=== PATIENT | male | born 1995 | race Caucasian/White ===

== ENCOUNTER 2021-03-20 12:47 | Emergency (ER) | payer MEDICAID, SELFPAY ==
[2021-03-20 12:49] VITALS: BP 153/95; PULSE 79; RESP 17; TEMP 37.1; O2SAT 99; BMI 26.6
--- NOTE | 2021-03-20 12:56 | EKG12_ITS ---
Test Reason : CP Blood Pressure : / mmHG Vent. Rate : 076 BPM Atrial Rate : 076 BPM P-R Int : 114 ms QRS Dur : 092 ms QT Int : 382 ms P-R-T Axes : 029 058 035 degrees QTc Int : 429 ms Normal sinus rhythm Normal ECG Confirmed by BROWN RODRIGUEZ, KITTY ([id number]), associate editor JOSEFA DIAZ ([id number]) on 03/21/2021 11:28:33 AM Referred By: JUVENTINO Confirmed By:KITTY DASILVA MD
[2021-03-20 13:11] LABS: Absolute Lymphocyte Count 1.71 X10^3/uL (0.83-4.51); Absolute Neutrophil Count 5.3 X10^3/uL (2.0-7.7); Basophil# 0.05 X10^3/uL; Basophil% 0.6 % (0-1); Hematocrit 44.2 % (40-54); Hemoglobin 14.5 g/dL (13.0-16.5); Lymphocyte # 1.71 X10^3/ul (0.83-4.51); Lymphocyte % 21.3 % (19-41); Mean Corp Hgb Conc 32.8 g/dL (32-36); Mean Corpuscular Hgb 31.2 pg (27.0-32.0); Mean Corpuscular Volume 95.1 fL (80-94); Mean Platelet Vol. 9.4 fl (6.2-12.0); Monocyte# 0.56 X10^3/uL; NRBC Flagged by Analyzer 0 % (0-5); Neutrophil % 65.9 % (47-70); Platelet Count 198 K/mm3 (150-450); RBC Distribution Width CV 12.8 % (11.6-14.6); Red Blood Count 4.65 M/mm3 (4.6-6.2)
--- NOTE | 2021-03-20 13:15 | CT_ITS ---
STUDY: CTA CHEST REASON FOR EXAM: Male, 25 years old. New onset of sudden chest pain. Possible dissection. RADIATION DOSAGE (If Supplied By Facility): CTDIvol = ( 12 ) mGy, DLP = ( 525.24 ) mGycm TECHNIQUE: The examination was performed with the intravenous administration of IV 100mL Isovue-370. Post-processing of the angiographic images was performed, with multiplanar reformation and 3D reconstruction. Individualized dose optimization techniques were used for this CT. COMPARISON: None. FINDINGS: Normal enhancement of the main pulmonary artery and right and left pulmonary arteries. Normal enhancement of the bilateral peripheral pulmonary arteries. There is no demonstrated pulmonary embolism. Normal thoracic aorta and visualized great vessels. There is no demonstrated aortic dissection. Normal heart and pericardium. Normal mediastinum. Normal hilar regions. Normal visualized trachea and bronchi. The lungs are well expanded. Normal pulmonary parenchyma. Normal pleura. Normal chest wall structures. There are mild degenerative changes of thoracic spine. Normal visualized upper abdomen. CT/CTA Chest W/WO Contrast IMPRESSION: Normal CTA chest examination, without a demonstrated pulmonary embolism or arterial dissection. Electronically Signed: Henry Ramachandran MD at 13:40 EDT , Service support ,
[2021-03-20 13:27] LABS: Anion Gap 2 (5-15); BUN 12 mg/dL (7-18); BUN/Creat Ratio 12.2 RATIO (10-20); Calcium,Total 8.9 mg/dL (8.5-10.1); Chloride 108 mmol/L (98-107); Creatinine, Serum 0.99 mg/dL (0.70-1.30); EST Glomerular Filtration Rate 97 mL/min (>60); Est Glom Filt Rate - Afr Amer 117 mL/min (>60); Glucose 106 mg/dL (74-106); Sodium Level 139 mmol/L (136-145)
[2021-03-20 13:47] VITALS: BP 118/70; PULSE 57; RESP 19; O2SAT 98
[2021-03-20 14:00] VITALS: BP 117/73; PULSE 60; RESP 17; O2SAT 99
--- NOTE | 2021-03-20 14:26 | EDS_ITS ---
HPI History of Present Illness Chief Complaint: Chest Pain Narrative Narrative: Patient presenting for evaluation secondary chest pain. Patient states that he is otherwise healthy, frequently works out. He states that he took a new preworkout supplement today called total war. He states that he then had a normal not overly strenuous workout. He states that he then went to work and had a very sudden onset of chest pain. He describes it as a sharp type pain that radiates straight through to his back and associated with tingling in his left arm. Patient does state that there is some worsening with taking deep breaths. Patient denies that he is having any prior similar episodes. Denies any injuries associated with this. He denies any personal or family history of connective tissue disease. He does report that he has a family history of heart disease, but denies any personal history of hypertension hyperlipidemia diabetes. He denies any DVT or PE risk factors. He does frequently drink caffeinated beverages, but denies that he actually has had any of that today. Review of systems otherwise negative. He does not use any illicit stimulants. [facility] Medical History Asthma Depression Home Medications fluoxetine 20 mg PO DAILY 03/20/21 [History Last Taken Unknown] trazodone 50 mg PO DAILY 03/20/21 [History Last Taken Unknown] Allergy/AdvReac Type Severity Reaction Status Date / Time Cephalosporins Allergy Other Verified 03/20/21 12:54 Penicillins Allergy Other Verified 03/20/21 12:54 Sulfa (Sulfonamide Allergy Hives Verified 03/20/21 12:54 Antibiotics) Family History Other Cancer Hypertension Surgical History H/O sinus surgery Umbilical hernia [place] teeth extracted Social History Smoking Status: Current every day smoker tobacco type: cigarettes alcohol intake: current Alcohol type: beer ROS ROS ED Constitutional Constitutional ED: Denies fever(s) Eyes Eyes: Denies change in vision ENT ENT ED: Denies rhinorrhea or sore throat Cardiovascular Cardiovascular: Reports as per HPI and chest pain Respiratory/Chest Respiratory/Chest: Reports dyspnea Gastrointestinal Gastrointestinal: Denies abdominal pain, nausea or vomiting Genitourinary Genitourinary ED: Denies dysuria Musculoskeletal Musculoskeletal: Denies myalgias or neck pain Integumentary Denies rash Neurologic Neurologic: Denies headache(s), paresthesias or weakness Psychiatric Psychiatric: Denies depression Endocrine Endocrinology: Denies polydipsia or polyuria Hematologic/Lymphatic Hematologic/Lymphatic: Denies easy bleeding or easy bruising Allergic/Immunologic Allergic/Immunologic ED: Denies urticaria EXAM Physical Exam Const Vital Signs: 03/20/21 12:49 03/20/21 12:51 03/20/21 12:59 Temperature 98.8 F Temperature Source Oral Pulse Rate 79 Respiratory Rate 17 Respiratory Effort Normal Non-Labored Blood Pressure 153/95 H Blood Pressure Mean 114 Pulse Ox 99 Oxygen Delivery Method Room Air Room Air Positive well nourished and well developed Constitutional Narrative: Patient is tall and thin in stature General Appearance ED: well developed and NAD HEENT Reports moist mucous membranes normocephalic and atraumatic Eyes EOMs intact bilaterally Neck no lymphadenopathy, supple and no JVD Chest Wall inspection of chest normal and palpation of chest normal Chest Narrative: No evidence of vesicular rash Resp normal respiratory effort and clear to auscultation bilaterally Auscultation: Negative for rales, rhonchi or wheezes Cardio regular rate, regular rhythm, S1 normal heart sound, S2 normal heart sound and no murmurs Peripheral Pulses: radial pulses present, posterior tibial pulses present and dorsalis pedis pulses present GI normal to inspection, nondistended, normoactive bowel sounds, soft to palpation and non-tender Extremity normal to inspection Extremity Narrative: Calves are supple no palpable cord General Extremety ED: Negative for edema or tenderness General Extremity: Negative for edema Neuro oriented x3 and no sensory deficits noted Sensorium / Orientation: awake and alert Motor Exam: strength abnormal Psych mental status grossly normal Skin no rashes or lesions noted Heart Score History: Slightly/Non-Suspicious ECG: Normal Age: </= 45 years Risk Factors: No Risk Factors Troponin: </= Normal Limit Score: 0 MDM MDM MDM Narrative Medical decision making narrative: Patient presented for evaluation secondary to chest pain. Patient described the pain is radiating through to his back, he had a tall thin stature, I was somewhat concerned for the possibility of aortic dissection so CT angiogram was ordered as well as EKG and lab work. CBC chemistry and troponin were found to be unremarkable. CT angiogram of chest per radiology was found to be negative. EKG as noted below is also unremarkable. Heart score is 0 in this patient, I do not feel that he requires admission. His symptoms potentially could have been secondary to his workout supplement, or may have been musculoskeletal regardless I believe that he is stable and appropriate for discharge. Patient was discharged in stable condition. Lab Data Labs: Laboratory Results - last 24 hr 03/20/21 03/20/21 13:02 13:02 WBC 8.0 RBC 4.65 Hgb 14.5 Hct 44.2 MCV 95.1 H MCH 31.2 MCHC 32.8 RDW Std Deviation 45.0 H RDW Coeff of Malathi 12.8 Plt Count 198 MPV 9.4 Immature Gran % (Auto) 0.200 Neut % (Auto) 65.9 Lymph % (Auto) 21.3 [place] % (Auto) 7.0 Eos % (Auto) 5.0 Baso % (Auto) 0.6 Absolute Neuts (auto) 5.3 Absolute Lymphs (auto) 1.71 Nucleated RBC % 0 Sodium 139 Potassium 4.0 Chloride 108 H Carbon Dioxide 29.0 Anion Gap 2 L BUN 12 Creatinine 0.99 Estim Creat Clear Calc 142.50 Est GFR (MDRD) Af Amer 117 Est GFR (MDRD) Non-Af 97 BUN/Creatinine Ratio 12.2 Glucose 106 Calcium 8.9 Troponin I < 0.015 Radiography Diagnostic Testing: Radiology Impression Chest CTA 03/20/21 13:15 IMPRESSION: Normal CTA chest examination, without a demonstrated pulmonary embolism or arterial dissection. Electronically Signed: Henry Ramachandran MD at 13:40 EDT , Service support , EKG Initial EKG: Attestation: I personally reviewed and interpreted this EKG as follows: (Normal sinus rhythm at [address] segments normal T waves normal CO and QTc intervals no evidence of WPW or [place] morphology no acute ischemia or arrhythmia) Discharge Plan Triage Chief Complaint: Chest Pain ED Provider: Hubert Mai Dx/Rx/DC Orders Clinical Impression: Chest pain Instructions: ED Chest Pain, Noncardiac Prescriptions: No Action trazodone 50 mg tablet 50 mg PO DAILY RF: 0 fluoxetine 20 mg tablet 20 mg PO DAILY RF: 0 Primary Care Provider: Hafsa Dupree NP Referrals: Hafsa Dupree NP, CAKE CUTTER MACHINE-C [Primary Care Provider] - As Needed Disposition Disposition: Home, self care
[2021-03-20] MEDS: Ketorolac 15 MG/ML Vial IV (14:58)
[2021-03-20 15:01] VITALS: BP 123/74; PULSE 69; RESP 16; O2SAT 98
== END 2021-03-20 15:01 | disposition home or self-care (01) ==
PROVIDERS: Emergency Provider Emergency Medicine; PCP Nurse Practitioner Primary Care
DX: R07.89 Other chest pain (principal); R20.2 Paresthesia of skin; F32.9 Major depressive disorder, single episode, unspecified; J45.909 Unspecified asthma, uncomplicated; Z79.899 Other long term (current) drug therapy; F17.210 Nicotine dependence, cigarettes, uncomplicated
CPT/HCPCS: 71275; 80048; 84484; 85025; 93005; 96374; 99284; Q9967

== ENCOUNTER 2021-04-08 16:00 | Emergency (ER) | payer MEDICAID, SELFPAY ==
[2021-04-08 16:00] VITALS: BP 135/96; PULSE 91; RESP 18; TEMP 36.5; O2SAT 97; BMI 26.2
--- NOTE | 2021-04-08 16:15 | RAD_ITS ---
STUDY: X-RAY - LEFT SHOULDER REASON FOR EXAM: Male, 25 years old. trauma to left shoulder TECHNIQUE: 4 view(s) of the shoulder. COMPARISON: None. FINDINGS: Normal glenohumeral articulation. Normal acromioclavicular joint. Normal acromion. Normal humeral head and visualized proximal humerus. The soft tissue structures are unremarkable. There is no demonstrated fracture. Normal visualized pulmonary apex. RAD/Shoulder min 2 Views IMPRESSION: Normal x-ray examination of the shoulder. Electronically Signed: Alejandro Stark MD at 16:39 EDT , Service support ,
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
== END 2021-04-08 17:34 | disposition home or self-care (01) ==
PROVIDERS: Emergency Provider Emergency Medicine; PCP Nurse Practitioner Primary Care
DX: S40.012A Contusion of left shoulder, initial encounter (principal); F17.210 Nicotine dependence, cigarettes, uncomplicated; F32.9 Major depressive disorder, single episode, unspecified; Y93.01 Activity, walking, marching and hiking; Z79.899 Other long term (current) drug therapy
CPT/HCPCS: 73030; 99282

== ENCOUNTER 2021-11-18 13:16 | Emergency (ER) | payer MEDICAID, SELFPAY ==
[2021-11-18 13:17] VITALS: BP 139/95; PULSE 84; RESP 18; TEMP 36.1; O2SAT 100; BMI 27.2
[2021-11-18 13:39] VITALS: BP 139/95; PULSE 84; RESP 16; RESP 18; TEMP 36.1; O2SAT 100
--- NOTE | 2021-11-18 14:11 | EDS_ITS ---
HPI History of Present Illness Chief Complaint: Nausea/Vomiting/Diarrhea Informant: patient Narrative Narrative: 26-year-old male presenting to the emergency department with vomiting diarrhea. He states that for about a week and a half now he has been ill. He had a runny nose sore throat cough congestion. He then developed vomiting and diarrhea. He states he was seen at [place] emergency room and was given fluids and some Phenergan and a prescription for nausea medication. He states that despite the nausea medication and Imodium continues to have fluid losses. and daughter are also sick. Diarrhea described as watery and yellow [facility] Medical History Asthma Depression Lab test negative for COVID-19 virus Uncontrolled hypertension Home Medications NK 11/18/21 [History Last Taken Unknown] Allergy/AdvReac Type Severity Reaction Status Date / Time Cephalosporins Allergy Other Verified 11/18/21 13:17 Penicillins Allergy Other Verified 11/18/21 13:17 Sulfa (Sulfonamide Allergy Hives Verified 11/18/21 13:17 Antibiotics) Family History Other Cancer Hypertension Surgical History H/O sinus surgery Umbilical hernia [place] teeth extracted Social History Smoking Status: Current every day smoker tobacco type: e-cigarettes alcohol intake: current Alcohol type: beer ROS ROS ED Constitutional Constitutional ED: Reports chills; Denies weight loss Eyes Eyes: Denies change in vision or diplopia ENT ENT ED: Reports ear pain, rhinorrhea and sore throat Cardiovascular Cardiovascular: Denies chest pain, orthopnea, palpitations or racing heartbeat Respiratory/Chest Respiratory/Chest: Reports cough and dyspnea; Denies orthopnea Gastrointestinal Gastrointestinal: Reports diarrhea, nausea and vomiting; Denies abdominal pain Genitourinary Genitourinary ED: Denies dysuria, hematuria or urinary frequency Musculoskeletal Musculoskeletal: Reports myalgias; Denies arthralgias Integumentary Denies abscess or rash Neurologic Neurologic: Denies headache(s) or weakness Psychiatric Psychiatric: Denies anxiety, depression, suicidal ideation or suicidal thoughts Endocrine Endocrinology: Denies polydipsia, polyphagia or polyuria Allergic/Immunologic Allergic/Immunologic ED: Denies mouth swelling, tongue swelling or urticaria EXAM Physical Exam Const Vital Signs: 11/18/21 13:17 11/18/21 13:39 Temperature 97 F L 97 F L Temperature Source Temporal Temporal Pulse Rate 84 84 Respiratory Rate 18 18 Blood Pressure 139/95 H 139/95 H Blood Pressure Mean 109 109 Pulse Ox 100 100 Oxygen Delivery Method Room Air Room Air Positive well nourished and well developed General Appearance ED: well developed HEENT Reports normocephalic, head/scalp atraumatic, TM's clear and moist mucous membranes HEENT Narrative: Turbinate edema Negative for trauma Tympanic Membrane ED: Yes TM's clear Eyes PERRL and EOMs intact bilaterally Neck no lymphadenopathy, supple and no JVD Resp normal respiratory effort and clear to auscultation bilaterally Cardio regular rate, regular rhythm and no murmurs GI normal to inspection, nondistended, normoactive bowel sounds and non-tender Palpation: soft Back/Spine no CVA tenderness and normal ROM Extremity normal to inspection General Extremety ED: Negative for edema General Extremity: Negative for edema Neuro oriented x3 and CN's II-XII intact bilaterally Sensorium / Orientation: alert Motor Exam: strength 5/5 throughout Psych mental status grossly normal Mood & Affect: Negative for depressed or tearful Skin no rashes or lesions noted and no wounds MDM MDM MDM Narrative Medical decision making narrative: Basic blood work CBC and CMP were normal. Interpretation of the chest x-ray is no acute process. Influenza and Covid test were negative. Patient received Toradol Zofran and IV fluids. He will be discharged home with supportive care return if worsening or concerns Lab Data Attestation: I reviewed the patient's lab results. Labs: Laboratory Results - last 24 hr 11/18/21 11/18/21 14:35 14:35 WBC 8.8 RBC 4.81 Hgb 15.2 Hct 45.7 MCV 95.0 H MCH 31.6 MCHC 33.3 RDW Std Deviation 45.3 H RDW Coeff of Malathi 12.8 Plt Count 231 MPV 8.9 Immature Gran % (Auto) 0.300 Neut % (Auto) 66.4 Lymph % (Auto) 21.3 [place] % (Auto) 7.0 Eos % (Auto) 4.5 Baso % (Auto) 0.5 Absolute Neuts (auto) 5.9 Absolute Lymphs (auto) 1.88 Nucleated RBC % 0 Sodium 141 Potassium 4.3 Chloride 107 Carbon Dioxide 29.0 Anion Gap 5 BUN 9 Creatinine 0.79 Estim Creat Clear Calc 177.01 Est GFR (MDRD) Af Amer 151 Est GFR (MDRD) Non-Af 125 BUN/Creatinine Ratio 11.4 Glucose 95 Calcium 9.2 Total Bilirubin 0.20 AST 14 L ALT 22 Alkaline Phosphatase 80 Total Protein 7.5 Albumin 3.9 Globulin 3.6 Albumin/Globulin Ratio 1.1 Radiography Diagnostic Testing: Clinical Impression(s) from Imaging Studies Chest X-Ray 11/18/21 14:16 IMPRESSION: Normal x-ray examination of the chest. Electronically Signed: Donald Mckeon MD at 15:23 EST Tel , Service support , Discharge Plan Triage Chief Complaint: Nausea/Vomiting/Diarrhea ED Provider: Alireza Bueno Dx/Rx/DC Orders Clinical Impression: Gastroenteritis, Acute dehydration Instructions: ED Gastroenteritis, Viral (Adult) Prescriptions: No Action NK RF: 0 Primary Care Provider: Hafsa Dupree NP Referrals: Hafsa Dupree NP, BOARDINGHOUSE KEEPER-C [Primary Care Provider] - As Needed Disposition Disposition: Home, Self Care
--- NOTE | 2021-11-18 14:16 | RAD_ITS ---
STUDY: X-RAY CHEST REASON FOR EXAM: Male, 26 years old. cough TECHNIQUE: Single AP portable view of the chest. COMPARISON: None. FINDINGS: The lungs are clear and expanded. There is no demonstrated pleural abnormality. Normal size heart. Normal mediastinum and leanna. Normal visualized pulmonary arteries. Normal visualized aortic arch and descending thoracic aorta. Normal visualized thoracic spine. Normal visualized ribs, clavicles, and shoulders. There is no demonstrated abnormality of the visualized soft tissue structures of the upper abdomen. RAD/Chest 1 View (Portable) IMPRESSION: Normal x-ray examination of the chest. Electronically Signed: Donald Mckeon MD at 15:23 EST Tel , Service support ,
[2021-11-18] MEDS: Ondansetron 4 MG/2 ML Vial IV (14:31)
[2021-11-18] MEDS: Ketorolac 30 MG/ML Syringe IV (14:31)
[2021-11-18] MEDS: 0.9% Normal Saline 1,000 ML 1000 ML IV (14:31)
[2021-11-18 14:41] LABS: Absolute Lymphocyte Count 1.88 X10^3/uL (0.83-4.51); Absolute Neutrophil Count 5.9 X10^3/uL (2.0-7.7); Basophil# 0.04 X10^3/uL; Basophil% 0.5 % (0-1); Eosinophils% 4.5 % (0-5); Hematocrit 45.7 % (40-54); Hemoglobin 15.2 g/dL (13.0-16.5); Lymphocyte # 1.88 X10^3/ul (0.83-4.51); Lymphocyte % 21.3 % (19-41); Mean Corp Hgb Conc 33.3 g/dL (32-36); Mean Corpuscular Hgb 31.6 pg (27.0-32.0); Mean Platelet Vol. 8.9 fl (6.2-12.0); Monocyte# 0.62 X10^3/uL; NRBC Flagged by Analyzer 0 % (0-5); Neutrophil # 5.85 X10^3/uL (2.7-7.7); Neutrophil % 66.4 % (47-70); Platelet Count 231 K/mm3 (150-450); RBC Distribution Width CV 12.8 % (11.6-14.6); RBC Distribution Width SD 45.3 fl (35.1-43.9); Red Blood Count 4.81 M/mm3 (4.6-6.2); White Blood Count 8.8 K/mm3 (4.4-11.0)
[2021-11-18 15:20] LABS: ALB/GLOB Ratio 1.1 RATIO (0.9-2.4); AST(SGOT) 14 U/L (15-37); Alanine Aminotransfer ALT/SGPT 22 U/L (16-61); Albumin, Serum 3.9 g/dL (3.2-5.0); Alkaline Phosphatase 80 U/L (45-117); Anion Gap 5 (5-15); BUN 9 mg/dL (7-18); BUN/Creat Ratio 11.4 RATIO (10-20); Calcium,Total 9.2 mg/dL (8.5-10.1); Chloride 107 mmol/L (98-107); Creatinine, Serum 0.79 mg/dL (0.70-1.30); EST Glomerular Filtration Rate 125 mL/min (>60); Est Glom Filt Rate - Afr Amer 151 mL/min (>60); Estimated Creatinine Clearance 177.01 ml/min; Globulin 3.6 g/dL (2.2-4.2); Glucose 95 mg/dL (74-106); Potassium 4.3 mmol/L (3.5-5.1); Protein, Total 7.5 g/dL (6.4-8.2); Sodium Level 141 mmol/L (136-145)
== END 2021-11-18 15:50 | disposition home or self-care (01) ==
PROVIDERS: Emergency Provider Emergency Medicine; PCP Nurse Practitioner Primary Care; Visit Provider Emergency Medicine
DX: K52.9 Noninfective gastroenteritis and colitis, unspecified (principal); E86.0 Dehydration; F17.290 Nicotine dependence, other tobacco product, uncomplicated; Z79.899 Other long term (current) drug therapy
CPT/HCPCS: 71045; 80053; 85025; 87426; 87804; 96361; 96374; 96375; 99283; J7030; J2405

== ENCOUNTER 2022-01-27 18:25 | Emergency (ER) | payer MEDICAID, SELFPAY ==
[2022-01-27] VITALS (8 sets, daily range): BP systolic 105–145; BP diastolic 62–87; PULSE 62–109; RESP 12–20; TEMP 37.2–38.3; O2SAT 93–98; BMI 27.8
--- NOTE | 2022-01-27 18:38 | ED.RN ---
Pt. states he was diagnosed with Influenza A yesterday at urgent care.
--- NOTE | 2022-01-27 18:50 | EKG12_ITS ---
Test Reason : FEVER Blood Pressure : / mmHG Vent. Rate : 091 BPM Atrial Rate : 091 BPM P-R Int : 122 ms QRS Dur : 094 ms QT Int : 354 ms P-R-T Axes : 042 019 010 degrees QTc Int : 435 ms Normal sinus rhythm Normal ECG Confirmed by BROWN RODRIGUEZ, KITTY ([id number]), editor map RENEA JORDAN ([id number]) on 01/30/2022 11:28:00 AM Referred By: YESSENIA Confirmed By:KITTY DASILVA MD
--- NOTE | 2022-01-27 18:55 | EDS_ITS ---
HPI History of Present Illness Chief Complaint: Fever Informant: patient Narrative Narrative: Patient presents secondary to fever, cough, shortness of breath for the past 2 to 3 days. He had difficulty keeping his fever under control. He has had nausea and vomiting. He was seen at [facility] early this morning and diagnosed with influenza A. Covid test was negative. [facility] Medical History Asthma Depression Lab test negative for COVID-19 virus Uncontrolled hypertension Home Medications promethazine 25 mg PO Q6H PRN #20 tab 11/18/21 [Rx Last Taken Unknown] promethazine 25 mg PO Q6H PRN #14 tab 01/27/22 [Rx Last Taken Unknown] Allergy/AdvReac Type Severity Reaction Status Date / Time Cephalosporins Allergy Other Verified 11/18/21 13:17 Penicillins Allergy Other Verified 11/18/21 13:17 Sulfa (Sulfonamide Allergy Hives Verified 11/18/21 13:17 Antibiotics) Family History Other Cancer Hypertension Surgical History H/O sinus surgery Umbilical hernia [place] teeth extracted Social History Smoking Status: Current every day smoker tobacco type: e-cigarettes alcohol intake: current Alcohol type: beer ROS ROS ED Constitutional Constitutional ED: Reports chills and fever(s) Eyes Eyes: Denies change in vision ENT ENT ED: Denies sore throat Cardiovascular Cardiovascular: Reports chest pain Respiratory/Chest Respiratory/Chest: Reports cough, dyspnea and sputum Gastrointestinal Gastrointestinal: Reports nausea and vomiting; Denies abdominal pain or diarrhea Genitourinary Genitourinary ED: Denies dysuria Musculoskeletal Musculoskeletal: Reports myalgias; Denies back pain Integumentary Denies rash Neurologic Neurologic: Reports weakness; Denies headache(s) Allergic/Immunologic Allergic/Immunologic ED: Denies urticaria EXAM Physical Exam Const Vital Signs: 01/27/22 18:26 01/27/22 18:36 01/27/22 19:23 Temperature 101 F H 99.7 F H Temperature Source Temporal Oral Pulse Rate 109 H 91 Respiratory Rate 16 18 Respiratory Effort Normal Blood Pressure 145/87 H 126/76 H Blood Pressure Mean 106 92 Pulse Ox 96 94 Oxygen Delivery Method Room Air Room Air 01/27/22 20:30 01/27/22 21:22 01/27/22 21:23 Temperature 99.3 F H 99.3 F H Temperature Source Oral Temporal Pulse Rate 81 87 85 Respiratory Rate 16 13 20 H Respiratory Effort Blood Pressure 112/74 106/64 106/64 Blood Pressure Mean 86 78 78 Pulse Ox 93 98 94 Oxygen Delivery Method Room Air Room Air Room Air 01/27/22 21:46 01/27/22 22:50 Temperature 99 F Temperature Source Oral Pulse Rate 75 62 Respiratory Rate 12 17 Respiratory Effort Blood Pressure 105/62 125/73 H Blood Pressure Mean 76 90 Pulse Ox 94 96 Oxygen Delivery Method Room Air Room Air Positive well nourished and well developed General Appearance ED: well developed HEENT Reports dry mucous membranes Mouth ED: Yes dry mucous membranes Mouth: dry mucous membranes Eyes PERRL and EOMs intact bilaterally Neck supple Chest Wall inspection of chest normal and palpation of chest normal Resp normal respiratory effort and clear to auscultation bilaterally Cardio Rate: tachycardic GI non-tender Auscultation: hypoactive bowel sounds Palpation: soft Extremity normal to inspection Neuro oriented x3 Sensorium / Orientation: alert Psych Mood & Affect: anxious Skin no rashes or lesions noted MDM MDM MDM Narrative Medical decision making narrative: Patient initially given a liter IV fluids along with Tylenol, Zofran, small dose of morphine. Lab work and chest x-ray ordered. Lab Data Attestation: I reviewed the patient's lab results. Labs: Laboratory Results - last 24 hr 01/27/22 01/27/22 19:05 19:05 WBC 4.9 RBC 4.42 L Hgb 13.9 Hct 40.7 MCV 92.1 MCH 31.4 MCHC 34.2 RDW Std Deviation 42.5 RDW Coeff of Malathi 12.6 Plt Count 171 MPV 9.2 Immature Gran % (Auto) 0.400 Neut % (Auto) 73.5 H Lymph % (Auto) 14.6 L Robeson % (Auto) 10.3 H Eos % (Auto) 0.8 Baso % (Auto) 0.4 Absolute Neuts (auto) 3.6 Absolute Lymphs (auto) 0.72 L Nucleated RBC % 0 Sodium 137 Potassium 3.4 L Chloride 105 Carbon Dioxide 25.0 Anion Gap 7 BUN 13 Creatinine 0.92 Estim Creat Clear Calc 152.00 Est GFR (MDRD) Af Amer 126 Est GFR (MDRD) Non-Af 104 BUN/Creatinine Ratio 14.1 Glucose 93 Calcium 7.8 L Total Bilirubin 0.50 Direct Bilirubin 0.15 AST 22 ALT 24 Alkaline Phosphatase 54 Total Protein 6.7 Albumin 3.6 Globulin 3.1 Radiography Chest X-Ray - ED: 1 View, Read by ED Physician, Normal, Heart, Lungs, Mediastinum and No Infiltrates Diagnostic Testing: Clinical Impression(s) from Imaging Studies Chest X-Ray 01/27/22 19:14 IMPRESSION: There are no acute findings. Electronically Signed: Saqib Swenson MD at 19:31 EDT Reading Location ID and State: [facility] / [place] , Service support , EKG Initial EKG: Attestation: I personally reviewed and interpreted this EKG as follows: Interpretation: Sinus Rhythm (Sinus at 91 with no acute ischemia.) Treatment and Re-Evaluation Narrative: On repeat evaluation systolic blood pressure was 106. was concerned that this was low for him. He is given a second liter of IV fluid. He is also given a dose of Toradol. Lab work and chest x-ray are unremarkable. EKG normal. Patient is greater than 48 hours and I do not feel that Tamiflu will be of great benefit. Patient will continue supportive care at home. He is tolerating p.o. here. He has Zofran at home but will also be written for Phenergan if he continues to have nausea and vomiting. Discharge Plan Triage Chief Complaint: Fever ED Provider: Gloria Yoder Dx/Rx/DC Orders Clinical Impression: Influenza A Instructions: ED Influenza (Adult) Prescriptions: New promethazine 25 mg tablet 25 mg PO Q6H PRN (Reason: nausea and vomiting) Qty: 14 RF: 0 No Action promethazine 25 mg tablet 25 mg PO Q6H PRN (Reason: nausea and vomiting) Qty: 20 RF: 0 Stand Alone Forms: ED Work / School Excuse Primary Care Provider: Hafsa Dupree NP Referrals: Joon,Hafsa [employer], [employer] [Primary Care Provider] - 1-2 Weeks Disposition Disposition: Home, Self Care
--- NOTE | 2022-01-27 19:14 | RAD_ITS ---
STUDY: X-RAY CHEST REASON FOR EXAM: Male, 26 years old. CHEST PAIN sob TECHNIQUE: XR Chest 1 View COMPARISON: 11/18/2021 FINDINGS: There is no demonstrated pleural abnormality. Normal size heart. Normal mediastinum and leanna. Normal visualized pulmonary arteries. Normal visualized aortic arch and descending thoracic aorta. Normal visualized thoracic spine. Normal visualized ribs, clavicles, and shoulders. There is no demonstrated abnormality of the visualized soft tissue structures of the upper abdomen. RAD/Chest 1 View (Portable) IMPRESSION: There are no acute findings. Electronically Signed: Saqib Swenson MD at 19:31 EDT ,
[2022-01-27] MEDS: 0.9% Normal Saline 1,000 ML 1000 ML IV (19:15)
[2022-01-27 19:37] LABS: Absolute Lymphocyte Count 0.72 X10^3/uL (0.83-4.51); Absolute Neutrophil Count 3.6 X10^3/uL (2.0-7.7); Basophil# 0.02 X10^3/uL; Basophil% 0.4 % (0-1); Eosinophil# 0.04 X10^3/uL; Eosinophils% 0.8 % (0-5); Hematocrit 40.7 % (40-54); Hemoglobin 13.9 g/dL (13.0-16.5); Lymphocyte # 0.72 X10^3/ul (0.83-4.51); Lymphocyte % 14.6 % (19-41); Mean Corp Hgb Conc 34.2 g/dL (32-36); Mean Corpuscular Hgb 31.4 pg (27.0-32.0); Mean Corpuscular Volume 92.1 fL (80-94); Mean Platelet Vol. 9.2 fl (6.2-12.0); Monocyte# 0.51 X10^3/uL; Monocyte% 10.3 % (0-10); NRBC Flagged by Analyzer 0 % (0-5); Neutrophil # 3.63 X10^3/uL (2.7-7.7); Neutrophil % 73.5 % (47-70); Platelet Count 171 K/mm3 (150-450); RBC Distribution Width CV 12.6 % (11.6-14.6); RBC Distribution Width SD 42.5 fl (35.1-43.9); Red Blood Count 4.42 M/mm3 (4.6-6.2); White Blood Count 4.9 K/mm3 (4.4-11.0)
[2022-01-27] MEDS: Morphine 2 MG/ML Syringe IV (19:48)
[2022-01-27] MEDS: Ondansetron 4 MG/2 ML Vial IV (19:48)
[2022-01-27] MEDS: Acetaminophen 500 MG Tablet 1000 MG PO (19:48)
[2022-01-27 19:54] LABS: AST(SGOT) 22 U/L (15-37); Alanine Aminotransfer ALT/SGPT 24 U/L (16-61); Albumin, Serum 3.6 g/dL (3.2-5.0); Alkaline Phosphatase 54 U/L (45-117); Anion Gap 7 (5-15); BUN 13 mg/dL (7-18); BUN/Creat Ratio 14.1 RATIO (10-20); Bilirubin, Direct 0.15 mg/dL (0.00-0.30); Calcium,Total 7.8 mg/dL (8.5-10.1); Chloride 105 mmol/L (98-107); Creatinine, Serum 0.92 mg/dL (0.70-1.30); EST Glomerular Filtration Rate 104 mL/min (>60); Est Glom Filt Rate - Afr Amer 126 mL/min (>60); Globulin 3.1 g/dL (2.2-4.2); Glucose 93 mg/dL (74-106); Potassium 3.4 mmol/L (3.5-5.1); Protein, Total 6.7 g/dL (6.4-8.2); Sodium Level 137 mmol/L (136-145)
[2022-01-27] MEDS: Ketorolac 30 MG/ML Syringe IV (21:45)
[2022-01-27] MEDS: 0.9% Normal Saline 1,000 ML 999 ML IV (21:45)
== END 2022-01-27 23:26 | disposition home or self-care (01) ==
PROVIDERS: Emergency Provider Emergency Medicine; PCP Nurse Practitioner Primary Care; Visit Provider Emergency Medicine
DX: J10.1 Influenza due to other identified influenza virus with other respiratory manifestations (principal); F17.290 Nicotine dependence, other tobacco product, uncomplicated; J45.909 Unspecified asthma, uncomplicated
CPT/HCPCS: 71045; 80048; 80076; 85025; 87040; 93005; 96361; 96374; 96375; 99284; A4216; J2405